=== PATIENT | female | born 1950 | race Hispanic/Latino ===

== ENCOUNTER 2017-05-12 05:33 | Emergency (ER) | payer MEDICARE ==
[2017-05-12 05:33] VITALS: BMI 18.8
[2017-05-12 05:52] VITALS: TEMP 97.8
[2017-05-12] MEDS ORDERED: Morphine 4 MG/ML VIAL IVP STA (06:02)
[2017-05-12] MEDS ORDERED: Morphine 4 MG/ML VIAL ONE (06:17)
[2017-05-12 06:29] LABS: BASO % 0.8 % (0.0-2.0); EOS # 0.1 K/uL (0.0-0.7); EOS % 1.9 % (0.0-4.0); HEMOGLOBIN 13.4 g/dL (12.0-16.0); LYMPH # 1.4 K/uL (1.0-4.3); LYMPH % 28.3 % (20.0-40.0); MEAN CELL VOLUME 98.8 fl (81.0-99.0); MEAN CORPUSCULAR HEMOGLOBIN 33.6 pg (27.0-31.0); MEAN CORPUSCULAR HGB CONC 33.9 g/dL (33.0-37.0); MEAN PLATELET VOLUME 7.7 fl (7.2-11.7); MONO # 0.6 K/uL (0.0-0.8); MONO % 12.4 % (0.0-10.0); NEUT # 2.7 K/uL (1.8-7.0); NEUT % 56.6 % (50.0-75.0); NRBC % 0.1 % (0.0-0.0); RBC 3.98 Mil/uL (3.80-5.20); RED CELL DISTRIBUTION WIDTH 13.5 % (11.5-14.5); WHITE BLOOD COUNT 4.8 K/uL (4.8-10.8)
[2017-05-12 06:36] LABS: BLOOD UREA NITROGEN 6 mg/dl (7-17); CALCIUM 8.9 mg/dL (8.4-10.2); GFR AFRICAN-AMERICAN > 60; GFR NON-AFRICAN AMERICAN > 60
--- NOTE | 2017-05-12 06:49 | ED PDOC ---
HPI: Chest Pain Time Seen by Provider: 05/12/17 05:49 Chief Complaint (Nursing): Chest Pain Chief Complaint (Provider): Chest Pain History Per: Patient History/Exam Limitations: no limitations Additional Complaint(s): 67 y/o female with past medical history of COPD and thyroid cancer presents to the ED for evaluation of chest pain. About a week ago she fell and hit her sternum against dresser and ever since pain has been worsening. Patient has difficulty breathing and cough. Denies any further medical complaints. Past Medical History Reviewed: Historical Data, Nursing Documentation, Vital Signs Vital Signs: Last Vital Signs Temp 97.8 F 05/12/17 05:50 Pulse 79 05/12/17 09:42 Resp 20 05/12/17 09:42 BP 118/80 05/12/17 09:42 Pulse Ox 96 05/12/17 09:42 - Medical History PMH: Arthritis (TENDERNITIS), COPD, Gastrointestinal Ulcer Denies: Chronic Kidney Disease - Surgical History Surgical History: Tonsillectomy - Family History Family History: States: Unknown Family Hx - Social History Current smoker - smoking cessation education provided: Yes (Heavy smoker >10 ciarettes daily) Alcohol: None Drugs: Denies - Home Medications Home Medications: Ambulatory Orders Medication Instructions Recorded traMADol [Ultram] 50 mg PO Q8 #10 tab 05/12/17 - Allergies Allergies/Adverse Reactions: Allergies Allergy/AdvReac Type Severity Reaction Status Date / Time acetaminophen Allergy RASH Verified 03/23/15 07:30 oxycodone Allergy RASH Verified 05/12/17 05:49 Penicillins Allergy ANAPHYLAXIS Verified 05/12/17 05:49 propoxyphene napsylate Allergy RASH Verified 05/12/17 05:49 [From Darvocet-N] ciprofloxacin AdvReac RASH Verified 05/12/17 05:49 ketorolac tromethamine AdvReac RASH Verified 05/12/17 05:49 [From Toradol] NSAIDS (Non-Steroidal AdvReac PAIN Verified 05/12/17 05:49 Anti-Inflamma Review of Systems ROS Statement: Except As Marked, All Systems Reviewed And Found Negative (As per HPI, otherwise negative) Cardiovascular: Positive for: Chest Pain Physical Exam - Reviewed Nursing Documentation Reviewed: Yes Vital Signs Reviewed: Yes - Physical Exam Appears: Positive for: Well, Non-toxic, No Acute Distress Head Exam: Positive for: ATRAUMATIC, NORMAL INSPECTION, NORMOCEPHALIC Skin: Positive for: Normal Color, Warm, Dry Eye Exam: Positive for: EOMI, Normal appearance, PERRL ENT: Positive for: Normal ENT Inspection Neck: Positive for: Normal, Painless ROM, Supple Cardiovascular/Chest: Positive for: Regular Rate, Rhythm, Other (Palpation to mid sternum, no crepatous or step off noted). Negative for: Murmur Respiratory: Positive for: Normal Breath Sounds. Negative for: Accessory Muscle Use, Respiratory Distress Gastrointestinal/Abdominal: Positive for: Normal Exam, Bowel Sounds, Soft. Negative for: Tenderness Back: Positive for: Normal Inspection Extremity: Positive for: Normal ROM. 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 Jerry pending xray and re-eval. Scribe Attestation: Documented by Dangelo rBooks acting as a scribe for Dennis Liao MD. Scribe Attestation: All medical record entries made by the Scribe were at my direction and personally dictated by me. I have reviewed the chart and agree that the record accurately reflects my personal performance of the history, physical exam, medical decision making, and the department course for this patient. I have also personally directed, reviewed, and agree with the discharge instructions and disposition. Disposition - Clinical Impression Clinical Impression: Contusion of chest wall - Patient ED Disposition Is Patient to be Admitted: Transfer of Care - Disposition Referrals: [facility] [Outside] Disposition: Transfer of Care Disposition Time: 07:00 Condition: FAIR Prescriptions: traMADol [Ultram] 50 mg PO Q8 #10 tab Instructions: Contusion (DC) Forms: [facility] (Mozambican) Patient Signed Over To: Kenny Jerry Handoff Comments: pending x-ray and re-eval
[2017-05-12 06:57] LABS: INR 0.9 (0.9-1.2); PARTIAL THROMBOPLASTIN TIME 31.7 Seconds (25.6-37.1); PROTHROMBIN TIME 9.8 Seconds (9.8-13.1)
--- NOTE | 2017-05-12 08:08 | RAD ---
HISTORY: chest pain, sternal pain after injury COMPARISON: No prior FINDINGS: BONES: Normal. No fracture. JOINTS: Normal. No osteoarthritis. SOFT TISSUE: Normal. OTHER FINDINGS: None . IMPRESSION: Normal Bone Xray.
--- NOTE | 2017-05-12 08:45 | RAD ---
HISTORY: chest pain COMPARISON: No prior. TECHNIQUE: Chest PA and lateral FINDINGS: LUNGS: No active pulmonary disease. 3.5 centimeter possible mass along the posterior inferior lung field (question right versus left) noted on lateral view only. PLEURA: No significant pleural effusion identified. No pneumothorax apparent. CARDIOVASCULAR: Normal. OSSEOUS STRUCTURES: No significant abnormalities. VISUALIZED UPPER ABDOMEN: Normal. OTHER FINDINGS: None. IMPRESSION: 3.5 centimeter possible mass along the posterior inferior lung field (question right versus left) noted on lateral view only.
--- NOTE | 2017-05-12 09:16 | ED PDOC ---
- Laboratory Results Result Diagrams: 05/12/17 06:18 05/12/17 06:18 - ECG O2 Sat by Pulse Oximetry: 97 Medical Decision Making Medical Decision Making: No fx seen on xray sternum or CXR. ? mass lower post lung feild on lateral view. Appears to have similar appearance 03/2016 CXR lat view. Will have pt follow up with PMD for eval of possible mass. Disposition - Clinical Impression Clinical Impression: Contusion of chest wall - POA Present On Arrival: None - Disposition Referrals: [facility] [Outside] Disposition: Routine/Home Disposition Time: 09:16 Condition: FAIR Prescriptions: traMADol [Ultram] 50 mg PO Q8 #10 tab Instructions: Contusion (DC) Forms: [facility] (Kyrgyz)
[2017-05-12 09:45] VITALS: BP 118/80; PULSE 79; RESP 20
[2017-05-13 01:43] VITALS: O2SAT 94
--- NOTE | 2017-05-13 10:34 | CARD ---
APPROVED REPORT EKG Measurement Heart [id number] <Conclusion> Normal sinus rhythm Normal ECG
== END 2017-05-12 09:45 | disposition home or self-care (01) ==
LOC: H.ER 05:33
DX: S20.219A Contusion of unspecified front wall of thorax, initial encounter (principal); W22.8XXA Striking against or struck by other objects, initial encounter; Y92.89 Other specified places as the place of occurrence of the external cause; J44.9 Chronic obstructive pulmonary disease, unspecified; Z85.850 Personal history of malignant neoplasm of thyroid; Z88.0 Allergy status to penicillin; Z88.5 Allergy status to narcotic agent; F17.200 Nicotine dependence, unspecified, uncomplicated
CPT/HCPCS: 71046; 71120; 80048; 84484; 85025; 85610; 85730; 93005; 96374; 99283; J2270

== ENCOUNTER 2017-12-07 17:57 | Emergency (ER) | payer MEDICARE ==
[2017-12-07 17:57] VITALS: BMI 18.8
--- NOTE | 2017-12-07 18:50 | ED PDOC ---
HPI: SOB/CHF/COPD Time Seen by Provider: 12/07/17 18:08 Chief Complaint (Nursing): Shortness Of Breath Chief Complaint (Provider): Shortness Of Breath History Per: Patient History/Exam Limitations: no limitations Onset/Duration Of Symptoms: Hrs, Sudden Onset Current Symptoms Are (Timing): Still Present Quality: Tightness Additional Complaint(s): Jerilyn Willoughby is a 67 year old female with a past medical history of arthritis and COPD who is presenting to the ED for evaluation of sudden onset shortness of breath associated with chest tightness, onset just prior to arrival. Patient states that she initially treated herself with her inhaler but she didnt not have any relief in symptoms so she came to the ED for further evaluation. She admits to recently having some chills, a subjective fever, and increased cough with sputum production. Patient reports that the last two weeks, she has decreased her levothyroxine because her youth minister saw that her thyroid function seemed to be becoming elevated. She also reports palpitations, lightheadedness, and mild anxiety. PMD: Shefali Tan [employer]isher [employer]: Dr. Alfred Against Medical Advice - AMA Patient Left Against Medical Advice: The patient declines admission to the hospital and wishes to leave the Emergency Department. This action is against my medical advice. This decision was made with informed refusal. The patient was told that admission to the hospital is necessary. Explanation of the reasons why were discussed. The risks of leaving were explained to the patient and include, but are not limited to, worsening of known or currently unknown conditions, permanent disability and from undiagnosed or untreated conditions. The patient has the capacity to make this informed decision and understands my explanation of the current medical problem and risks of leaving. The patient voluntarily accepts these risks and signed an AMA form documenting our conversation. The patient was given the opportunity to ask questions and reconsider. The patient was encouraged to return to the Emergency Department at any time for further care. Past Medical History Reviewed: Historical Data, Nursing Documentation, Vital Signs Vital Signs: Last Vital Signs Temp 98.4 F 12/07/17 18:01 Pulse 110 H 12/07/17 18:01 Resp 18 12/07/17 18:01 BP 153/97 H 12/07/17 18:01 Pulse Ox 98 12/07/17 18:01 - Medical History PMH: Arthritis (TENDERNITIS), COPD, Gastrointestinal Ulcer Denies: Chronic Kidney Disease - Surgical History Surgical History: Tonsillectomy - Family History Family History: States: Unknown Family Hx - Social History Current smoker - smoking cessation education provided: No Alcohol: None Drugs: Denies - Home Medications Home Medications: Ambulatory Orders Medication Instructions Recorded RX: traMADol [Ultram] 50 mg PO Q8 #10 tab 05/12/17 - Allergies Allergies/Adverse Reactions: Allergies Allergy/AdvReac Type Severity Reaction Status Date / Time acetaminophen Allergy RASH Verified 12/07/17 18:01 oxycodone Allergy RASH Verified 12/07/17 18:01 Penicillins Allergy ANAPHYLAXIS Verified 12/07/17 18:01 propoxyphene napsylate Allergy RASH Verified 12/07/17 18:01 [From Darvocet-N] ciprofloxacin AdvReac RASH Verified 12/07/17 18:01 ketorolac tromethamine AdvReac RASH Verified 12/07/17 18:01 [From Toradol] NSAIDS (Non-Steroidal AdvReac PAIN Verified 12/07/17 18:01 Anti-Inflamma Review of Systems ROS Statement: Except As Marked, All Systems Reviewed And Found Negative Constitutional: Positive for: Fever Cardiovascular: Positive for: Chest Pain (tightness ) Respiratory: Positive for: Cough, Shortness of Breath, Sputum Neurological: Positive for: Other (lightheadedness) Physical Exam - Reviewed Nursing Documentation Reviewed: Yes Vital Signs Reviewed: Yes - Physical Exam Appears: Positive for: No Acute Distress (mildly anxious) Head Exam: Positive for: ATRAUMATIC, NORMOCEPHALIC Skin: Positive for: Warm, Dry Eye Exam: Positive for: EOMI, PERRL ENT: Positive for: Pharynx Is (clear), Other (dry mucous membranes) Neck: Positive for: Painless ROM, Supple Cardiovascular/Chest: Positive for: Tachycardia (with regular rhythm) Respiratory: Positive for: Other (poor air movement). Negative for: Rales, Rhonchi, Wheezing Gastrointestinal/Abdominal: Positive for: Soft. Negative for: Tenderness Back: Positive for: Normal Inspection. Negative for: Decreased ROM Extremity: Positive for: Normal ROM, Other (RIGHT hand splint). Negative for: Deformity Lymphatic: Negative for: Adenopathy Neurologic/Psych: Positive for: Alert. Negative for: Motor/Sensory Deficits - Laboratory Results Result Diagrams: 12/07/17 18:56 12/07/17 18:56 - ECG ECG Rhythm: Positive for: Normal QRS, Normal ST Segment, Sinus Tachycardia Rate: 104 O2 Sat by Pulse Oximetry: 98 (RA) Pulse Ox Interpretation: Normal Medical Decision Making Medical Decision Making: Time: 18:19 Impression: Tachycardia with shortness of breath Differentials (including but not limited to): hyperthyroidism, thyroid storm, ACS, PE, pneumonia, CHF Plan: --Blood Type and Screen --ABG Shock Panel --EKG --BNP --CMP --Free T4 --Magnesium --Phosphorous --T3 --TSH --Troponin --ED Urine Dipsitck --CBC --D Dimer --Coags --Chest X-Ray --Blood Culture Initial labs with no emergently significant abnormalities. Pt's HR improved without intervention in ER. However advised that due to cardiac and pulmonary risk factors, pt should stay for observation. However pt declines this. Understands risk of or severe disability and wished to go home anyway. AMA signed. Scribe Attestation: Documented by Amparo Melgar, acting as a scribe for Jacy Joseph MD. Provider Scribe Attestation: All medical record entries made by the Scribe were at my direction and personally dictated by me. I have reviewed the chart and agree that the record accurately reflects my personal performance of the history, physical exam, medical decision making, and the department course for this patient. I have also personally directed, reviewed, and agree with the discharge instructions and disposition. Disposition - Clinical Impression Clinical Impression: Palpitations, Tachycardia - Disposition Disposition: Against Medical Advice Disposition Time: 21:30 Condition: UNKNOWN Additional Instructions: RETURN TO ER IMMEDIATELY FOR ADMISSION AND FURTHER EVALUATION OF SHORTNESS OF BREATH. Instructions: Leaving Against Medical Advice
[2017-12-07 19:06] LABS: BASO % 0.7 % (0.0-2.0); EOS # 0.1 K/uL (0.0-0.7); EOS % 1.9 % (0.0-4.0); HEMOGLOBIN 13.8 g/dL (12.0-16.0); LYMPH # 1.2 K/uL (1.0-4.3); MEAN CELL VOLUME 97.8 fl (81.0-99.0); MEAN CORPUSCULAR HEMOGLOBIN 33.8 pg (27.0-31.0); MEAN CORPUSCULAR HGB CONC 34.5 g/dL (33.0-37.0); MEAN PLATELET VOLUME 8.1 fl (7.2-11.7); MONO # 0.4 K/uL (0.0-0.8); MONO % 9.2 % (0.0-10.0); NEUT # 2.8 K/uL (1.8-7.0); NEUT % 61.2 % (50.0-75.0); RBC 4.07 Mil/uL (3.80-5.20); RED CELL DISTRIBUTION WIDTH 13.5 % (11.5-14.5); WHITE BLOOD COUNT 4.6 K/uL (4.8-10.8)
[2017-12-07 19:09] LABS: ABG ALLEN TEST YES; ARTERIAL BLOOD GAS HCO3 26.7 mmol/L (21-28); ARTERIAL BLOOD GAS O2 SAT 98.7 % (95-98); ARTERIAL BLOOD GAS PCO2 42 mm/Hg (35-45); ARTERIAL BLOOD GAS PH 7.42 (7.35-7.45); ARTERIAL BLOOD GAS PO2 75 mm/Hg (80-100); ARTERIAL BLOOD GAS TCO2 28.5 mmol/L (22-28)
[2017-12-07 19:16] LABS: ALB/GLOB RATIO 1.4 (1.0-2.1); ALBUMIN 3.9 g/dL (3.5-5.0); BLOOD UREA NITROGEN 11 mg/dl (7-17); GFR NON-AFRICAN AMERICAN > 60
[2017-12-07 19:26] LABS: ALT/SGPT 19 U/L (9-52); AST/SGOT 38 U/L (14-36)
[2017-12-07 19:28] LABS: B-TYPE NATRIURETIC PEPTIDE 318 pg/ml (0-900)
[2017-12-07 19:46] LABS: T3 0.884 nmol/L (1.49-2.60)
[2017-12-07 20:52] LABS: INR 0.9
[2017-12-07 20:53] VITALS: RESP 18; TEMP 98
[2017-12-07 20:53] LABS: PARTIAL THROMBOPLASTIN TIME 32.1 Seconds (25.6-37.1)
[2017-12-07 21:04] LABS: D DIMER < 200 ng/mlDDU (0-230); PROTHROMBIN TIME 9.9 Seconds (9.8-13.1)
[2017-12-07] MEDS ORDERED: Albuterol-Ipratrop 3 mg / 0.5 (3 ml) UD ONE (21:32)
[2017-12-07] MEDS ORDERED: Albuterol-Ipratrop 3 mg / 0.5 (3 ml) UD INH STA (21:35)
[2017-12-07 22:42] VITALS: BP 108/60
--- NOTE | 2017-12-08 10:45 | CARD ---
APPROVED REPORT Date of service: 12/07/2017 EKG Measurement Heart [id number] <Conclusion> Sinus tachycardia Cannot rule out Anterior infarct, age undetermined Abnormal ECG
--- NOTE | 2017-12-08 11:05 | RAD ---
Date of service: 12/07/2017 HISTORY: sob tachycardia COMPARISON: 05/12/2017 FINDINGS: LUNGS: Lungs are mildly hyperinflated. Mild interstitial changes are noted. There family a jay of the left hemidiaphragm, unchanged from prior study. No hilar enlargement is noted. PLEURA: No significant pleural effusion identified, no pneumothorax apparent. CARDIOVASCULAR: Normal. OSSEOUS STRUCTURES: No significant abnormalities. VISUALIZED UPPER ABDOMEN: Normal. OTHER FINDINGS: None. IMPRESSION: No active disease.
[2017-12-08 16:43] VITALS: PULSE 104; O2SAT 98
== END 2017-12-07 21:40 | disposition left against medical advice (07) ==
LOC: H.ER 17:57
DX: R00.0 Tachycardia, unspecified (principal); R00.2 Palpitations; J44.9 Chronic obstructive pulmonary disease, unspecified; R07.89 Other chest pain; Z88.1 Allergy status to other antibiotic agents; Z88.0 Allergy status to penicillin; M19.90 Unspecified osteoarthritis, unspecified site
CPT/HCPCS: 36600; 71045; 80053; 82803; 83735; 83880; 84100; 84439; 84443; 84480; 84484; 85025; 85378; 85610; 85730; 87040; 93005; 94640; 96374; 99285; J2405

== ENCOUNTER 2017-12-28 18:19 | Emergency (ER) | payer MEDICARE ==
[2017-12-28 18:20] VITALS: BMI 18.8
[2017-12-28] MEDS ORDERED: Sodium Chloride 0.9% 500 ML IV STA (18:50)
--- NOTE | 2017-12-28 18:53 | ED PDOC ---
Lower Extremity Pain/Injury Time Seen by Provider: 12/28/17 18:32 Chief Complaint (Nursing): Lower Extremity Problem/Injury Chief Complaint (Provider): Grain hematoma History Per: Patient History/Exam Limitations: no limitations Onset/Duration Of Symptoms: Days (yesterday) Current Symptoms Are (Timing): Still Present Additional Complaint(s): Pt. with right groin pain worsening since yesterday with increased swelling and black and blue in right groin. Denies any numbness, tingles, weakness. Able to walk and move leg around. Had a cath in her right groin yesterday by Dr. Bang. Took 2 plavix prior to that. Since then on aspirin. No other blood thinners. No chest pain, dyspnea. Had cath for evaluation of her heart. States it was normal. PCP: Dr. Aguilar. Past Medical History Reviewed: Historical Data, Nursing Documentation, Vital Signs Vital Signs: Last Vital Signs Temp 97.7 F 12/28/17 18:21 Pulse 103 H 12/28/17 18:21 Resp 18 12/28/17 18:21 BP 131/72 12/28/17 18:21 Pulse Ox 100 12/28/17 18:21 - Medical History PMH: Arthritis (TENDERNITIS), Asthma, COPD, Gastrointestinal Ulcer Denies: Chronic Kidney Disease - Surgical History Surgical History: Tonsillectomy Denies: Pacemaker - Family History Family History: States: Unknown Family Hx - Home Medications Home Medications: Ambulatory Orders Medication Instructions Recorded Albuterol HFA [Ventolin HFA 90 0.09 mg IH PRN PRN 12/26/17 mcg/actuation (8 g)] Aspirin [Ecotrin] 81 mg PO DAILY 12/26/17 Levothyroxine [Synthroid] 75 mcg PO DAILY 12/26/17 - Allergies Allergies/Adverse Reactions: Allergies Allergy/AdvReac Type Severity Reaction Status Date / Time acetaminophen Allergy RASH Verified 12/07/17 18:01 Penicillins Allergy ANAPHYLAXIS Verified 12/07/17 18:01 propoxyphene napsylate Allergy RASH Verified 12/07/17 18:01 [From Darvocet-N] ciprofloxacin AdvReac RASH Verified 12/07/17 18:01 ketorolac tromethamine AdvReac RASH Verified 12/07/17 18:01 [From Toradol] NSAIDS (Non-Steroidal AdvReac PAIN Verified 12/07/17 18:01 Anti-Inflamma Review of Systems ROS Statement: Except As Marked, All Systems Reviewed And Found Negative Musculoskeletal: Positive for: Other (groin) Neurological: Negative for: Weakness Physical Exam - Reviewed Nursing Documentation Reviewed: Yes Vital Signs Reviewed: Yes - Physical Exam Appears: Positive for: Uncomfortable Head Exam: Positive for: ATRAUMATIC, NORMAL INSPECTION, NORMOCEPHALIC Eye Exam: Positive for: EOMI, Normal appearance, PERRL ENT: Positive for: Normal ENT Inspection Neck: Positive for: Normal, Painless ROM Cardiovascular/Chest: Positive for: Regular Rate, Rhythm Respiratory: Positive for: CNT, Normal Breath Sounds Pulses-Dorsalis Pedis (L): 2+ Pulses-Dorsalis Pedis (R): 2+ Pulses-Post. Tibialis (L): 2+ Pulses-Post. Tibialis (R): 2+ Gastrointestinal/Abdominal: Positive for: Tenderness (R groing with large hematoma and tender; echymosis in area and upper right leg.) Back: Positive for: Normal Inspection. Negative for: L CVA Tenderness, R CVA Tenderness Extremity: Positive for: Normal ROM. Negative for: Tenderness (of lower extremity knee down.) Neurologic/Psych: Positive for: Alert, Oriented - Laboratory Results Result Diagrams: 12/28/17 19:08 12/28/17 19:08 Interpretation Of Abn Labs: no acute - ECG O2 Sat by Pulse Oximetry: 100 Pulse Ox Interpretation: Normal - Progress ED Course And Treament: 2304: Spoke with surgery resident. Will see pt. in the ER. Dr. Bang paged with no response. 1110: Pt. will need further observation in hospital. No vascular regional sales coordinator at [place]. No vascular surgeon available at [facility]. Dr. Elizalde out of town. Pt. wants to go to [facility]. Spoke with Dr. Brooks fellow at [facility]. Will see pt. in the ER with Dr. Bang. Spoke with Dr. Garner in the ER. Aware of case and will accept for transfer to ER. - Critical Care Total Time (In Min): 30 Documented Critical Care: Time excludes all time spent performint seperately billable procedures Disposition - Clinical Impression Clinical Impression: Hematoma - Patient ED Disposition Is Patient to be Admitted: Yes Counseled Patient/Family Regarding: Studies Performed, Diagnosis - Disposition Disposition: Other Institution Disposition Time: 00:05 Condition: FAIR
[2017-12-28 19:19] LABS: BASO % 0.9 % (0.0-2.0); EOS # 0.1 K/uL (0.0-0.7); EOS % 1.7 % (0.0-4.0); HEMOGLOBIN 12.7 g/dL (12.0-16.0); LYMPH % 18.1 % (20.0-40.0); MEAN CELL VOLUME 98.1 fl (81.0-99.0); MEAN CORPUSCULAR HEMOGLOBIN 33.6 pg (27.0-31.0); MEAN CORPUSCULAR HGB CONC 34.3 g/dL (33.0-37.0); MEAN PLATELET VOLUME 8.4 fl (7.2-11.7); MONO # 0.5 K/uL (0.0-0.8); NEUT # 3.7 K/uL (1.8-7.0); NEUT % 70.3 % (50.0-75.0); RBC 3.77 Mil/uL (3.80-5.20); RED CELL DISTRIBUTION WIDTH 13.5 % (11.5-14.5); WHITE BLOOD COUNT 5.2 K/uL (4.8-10.8)
[2017-12-28 19:30] LABS: PROTHROMBIN TIME 10.9 Seconds (9.8-13.1)
[2017-12-28] MEDS ORDERED: Iohexol 300 100 ML IJ ONE (19:31)
[2017-12-28] MEDS ORDERED: Sodium Chloride 0.9% 50 ML IV ONE (19:31)
[2017-12-28 19:33] LABS: PARTIAL THROMBOPLASTIN TIME 29.7 Seconds (25.6-37.1)
[2017-12-28 19:35] LABS: ALB/GLOB RATIO 1.5 (1.0-2.1); ALT/SGPT 17 U/L (9-52); AST/SGOT 27 U/L (14-36); BLOOD UREA NITROGEN 8 mg/dl (7-17); CALCIUM 9.2 mg/dL (8.4-10.2); GFR NON-AFRICAN AMERICAN > 60
[2017-12-29 01:43] VITALS: BP 139/92; PULSE 90; RESP 20; TEMP 97.7; O2SAT 95
--- NOTE | 2017-12-29 09:14 | CT ---
Date of service: 12/28/2017 PROCEDURE: CT Abdomen and Pelvis with contrast HISTORY: hematoma post cath yesterday. COMPARISON: CT scan of the abdomen pelvis dated 07/07/2013. TECHNIQUE: Contrast dose: 80 mL Omnipaque 300 Radiation dose: Total exam DLP = 278.15 mGy-cm. This CT exam was performed using one or more of the following dose reduction techniques: Automated exposure control, adjustment of the mA and/or kV according to patient size, and/or use of iterative reconstruction technique. FINDINGS: LOWER THORAX: Unremarkable. LIVER: Unremarkable. No gross lesion or ductal dilatation. GALLBLADDER AND BILE DUCTS: Unremarkable. PANCREAS: Unremarkable. No gross lesion or ductal dilatation. SPLEEN: Unremarkable. ADRENALS: Unremarkable. No mass. KIDNEYS AND URETERS: Unremarkable. No hydronephrosis. No solid mass. VASCULATURE: No aortic aneurysm. Scattered aortic atherosclerotic calcifications. Right common femoral artery serpiginous pseudoaneurysm measuring approximately 1.9 x 1.0 cm. BOWEL: Colonic diverticulosis. No obstruction. No gross mural thickening. APPENDIX: No findings to suggest acute appendicitis. PERITONEUM: Unremarkable. No free fluid. No free air. LYMPH NODES: Unremarkable. No enlarged lymph nodes. BLADDER: Unremarkable. REPRODUCTIVE: Unremarkable. BONES: No acute fracture. Spinal degenerative changes. OTHER FINDINGS: Right inguinal region bilobed 6.8 x 5.6 cm hematoma. IMPRESSION: Right common femoral artery serpiginous pseudoaneurysm measuring approximately 1.9 x 1.0 cm with thin neck and adjacent 6.8 x 5.6 cm bilobed hematoma. Additional findings as above. The patient was transferred to [facility] for further care.
== END 2017-12-29 01:44 | disposition short-term general hospital (02) ==
LOC: H.ER 18:19
DX: L76.22 Postprocedural hemorrhage of skin and subcutaneous tissue following other procedure (principal); Z79.01 Long term (current) use of anticoagulants; Z79.82 Long term (current) use of aspirin; Z88.1 Allergy status to other antibiotic agents; Z88.0 Allergy status to penicillin; J44.9 Chronic obstructive pulmonary disease, unspecified
CPT/HCPCS: 74177; 80053; 84484; 85025; 85610; 85730; 86850; 86900; 96361; 96374; 99283; J2270; J7040; Q9967

== ENCOUNTER 2018-04-21 15:35 | Emergency (ER) | payer MEDICARE ==
[2018-04-21 15:35] VITALS: BMI 18.8
[2018-04-21 15:43] VITALS: RESP 18
--- NOTE | 2018-04-21 16:07 | ED PDOC ---
HPI: Chest Pain Time Seen by Provider: 04/21/18 15:50 Chief Complaint (Nursing): Chest Pain Chief Complaint (Provider): Chest Pain History Per: Patient History/Exam Limitations: no limitations Current Symptoms Are (Timing): Still Present Quality: Tightness Additional Complaint(s): Jerilyn Willoughby is a 68 year old female with a past medical history of HTN, hematoma, CO and thyroid cancer, who presents to the emergency department complaining of chest pain that feels like tightness. Patient further states that she had a argument with her last night and woke up angry and has been feeling overwhelmed lately. Patient denies having any history of seizures. Rhea [place] further states that in December of 2017 she had a catheter procedure done on her. Patient denies having any other complaints. PMD: Lauren Rodriguez Past Medical History Reviewed: Historical Data, Nursing Documentation, Vital Signs Vital Signs: Last Vital Signs Temp 98.1 F 04/21/18 15:41 Pulse 89 04/21/18 15:41 Resp 18 04/21/18 15:41 BP 162/70 H 04/21/18 15:41 Pulse Ox 97 04/21/18 15:41 - Medical History PMH: Arthritis (TENDERNITIS), Asthma, COPD, Gastrointestinal Ulcer, Hypothyroidism (hx of thyroidectomy) Denies: Chronic Kidney Disease Other PMH: CO; hematoma; thyroid cancer - Surgical History Surgical History: Tonsillectomy Denies: Pacemaker - Family History Family History: States: Unknown Family Hx - Immunization History Hx Tetanus Toxoid Vaccination: No Hx Influenza Vaccination: No Hx Pneumococcal Vaccination: No - Home Medications Home Medications: Ambulatory Orders Medication Instructions Recorded Albuterol HFA [Ventolin HFA 90 0.09 mg IH PRN PRN 12/26/17 mcg/actuation (8 g)] Aspirin [Ecotrin] 81 mg PO DAILY 12/26/17 Levothyroxine [Synthroid] 75 mcg PO DAILY 12/26/17 - Allergies Allergies/Adverse Reactions: Allergies Allergy/AdvReac Type Severity Reaction Status Date / Time acetaminophen Allergy RASH Verified 04/21/18 15:48 Penicillins Allergy ANAPHYLAXIS Verified 04/21/18 15:48 propoxyphene napsylate Allergy RASH Verified 04/21/18 15:48 [From Aliyah-N] ciprofloxacin AdvReac RASH Verified 04/21/18 15:48 ketorolac tromethamine AdvReac RASH Verified 04/21/18 15:48 [From Toradol] NSAIDS (Non-Steroidal AdvReac PAIN Verified 04/21/18 15:48 Anti-Inflamma Review of Systems ROS Statement: Except As Marked, All Systems Reviewed And Found Negative Cardiovascular: Positive for: Chest Pain Respiratory: Negative for: Shortness of Breath Physical Exam - Reviewed Nursing Documentation Reviewed: Yes Vital Signs Reviewed: Yes - Physical Exam Appears: Positive for: Non-toxic, No Acute Distress (mildly anxious) Head Exam: Positive for: ATRAUMATIC, NORMOCEPHALIC Skin: Positive for: Normal Color, Warm, Dry Eye Exam: Positive for: Normal appearance, EOMI, PERRL Neck: Positive for: Normal, Painless ROM, Supple Cardiovascular/Chest: Positive for: Regular Rate, Rhythm. Negative for: Murmur Respiratory: Positive for: Normal Breath Sounds. Negative for: Respiratory Distress Pulses-Radial (L): 2+ Pulses-Radial (R): 2+ Gastrointestinal/Abdominal: Positive for: Soft. Negative for: Tenderness Extremity: Positive for: Normal ROM, Pedal Edema. Negative for: Deformity Neurologic/Psych: Positive for: Alert, Oriented. Negative for: Motor/Sensory Deficits - Laboratory Results Result Diagrams: 04/21/18 16:47 04/21/18 16:47 - ECG O2 Sat by Pulse Oximetry: 97 (RA) Pulse Ox Interpretation: Normal Medical Decision Making Medical Decision Making: Time: 1543 A/P: work up to rule out cardiac etiology based on chest pain. Patient is high risk and will discuss case with Dr. Aguilar. --EKG --BMP --BNP --Troponin I --CBC with differential --Chest xray 2 views Chest xray findings: FINDINGS: LUNGS: No active pulmonary disease. PLEURA: No significant pleural effusion identified. No pneumothorax apparent. CARDIOVASCULAR: No aortic atherosclerotic calcification present. Normal cardiac size. No pulmonary vascular congestion. OSSEOUS STRUCTURES: No significant abnormalities. VISUALIZED UPPER ABDOMEN: Normal. OTHER FINDINGS: None. IMPRESSION: No active disease. Time: 1809 --Patient's labs are normal and EKG shows NSR --Patient states that she has not had any chest discomfort since the morning. 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 --Patient is safe for discharge home. --Patient instructed to follow up with Dr. Aguilar tomorrow or Sunday. Return parameters discussed. ---- Scribe Attestation: Documented by Sergei Barron, acting as a scribe for Hermelinda Irvin MD. Provider Scribe Attestation: All medical record entries made by the Scribe were at my direction and personally dictated by me. I have reviewed the chart and agree that the record accurately reflects my personal performance of the history, physical exam, medical decision making, and the department course for this patient. I have also personally directed, reviewed, and agree with the discharge instructions and disposition. Disposition - Clinical Impression Clinical Impression: Atypical chest pain - Disposition Referrals: Klaus Aguilar MD [Staff Provider] - Disposition: Routine/Home Disposition Time: 18:10 Condition: IMPROVED Additional Instructions: Follow up with primary medical doctor and Dr. Ric Aguilar. Continue to take all home medications as prescribed. Return to the emergency department if symptoms worsen or if new symptoms develop. Instructions: Chest Pain, Angina (DC) Forms: [employer] (Upper Sorbian) Print Language: KENYAN
[2018-04-21 16:50] LABS: BASO # 0.1 K/uL (0.0-0.2); BASO % 1.1 % (0.0-2.0); EOS % 0.6 % (0.0-4.0); HEMOGLOBIN 14.2 g/dL (12.0-16.0); LYMPH # 1.1 K/uL (1.0-4.3); LYMPH % 20.1 % (20.0-40.0); MEAN CORPUSCULAR HEMOGLOBIN 34.6 pg (27.0-31.0); MEAN CORPUSCULAR HGB CONC 35.1 g/dL (33.0-37.0); MEAN PLATELET VOLUME 7.8 fl (7.2-11.7); MONO # 0.6 K/uL (0.0-0.8); MONO % 10.6 % (0.0-10.0); NEUT # 3.6 K/uL (1.8-7.0); NEUT % 67.6 % (50.0-75.0); NRBC % 0.1 % (0.0-0.0); RBC 4.12 Mil/uL (3.80-5.20); RED CELL DISTRIBUTION WIDTH 12.9 % (11.5-14.5); WHITE BLOOD COUNT 5.3 K/uL (4.8-10.8)
[2018-04-21 16:52] LABS: MEAN CELL VOLUME 98.4 fl (81.0-99.0)
[2018-04-21 17:04] LABS: BLOOD UREA NITROGEN 9 mg/dl (7-17); CALCIUM 9.6 mg/dL (8.4-10.2); GFR NON-AFRICAN AMERICAN > 60
--- NOTE | 2018-04-21 17:10 | RAD ---
Date of service: 04/21/2018 HISTORY: cough COMPARISON: No prior. TECHNIQUE: Chest PA and lateral FINDINGS: LUNGS: No active pulmonary disease. PLEURA: No significant pleural effusion identified. No pneumothorax apparent. CARDIOVASCULAR: No aortic atherosclerotic calcification present. Normal cardiac size. No pulmonary vascular congestion. OSSEOUS STRUCTURES: No significant abnormalities. VISUALIZED UPPER ABDOMEN: Normal. OTHER FINDINGS: None. IMPRESSION: No active disease.
[2018-04-21 17:16] LABS: B-TYPE NATRIURETIC PEPTIDE 149 pg/ml (0-900)
[2018-04-21 19:26] VITALS: BP 139/89; PULSE 88; TEMP 98.3; O2SAT 98
--- NOTE | 2018-04-22 16:14 | CARD ---
APPROVED REPORT Date of service: 04/21/2018 EKG Measurement Heart [id number] <Conclusion> Normal sinus rhythm Nonspecific ST abnormality Abnormal ECG
== END 2018-04-21 16:35 | disposition home or self-care (01) ==
LOC: H.ER 15:35
DX: R07.89 Other chest pain (principal); E03.9 Hypothyroidism, unspecified; I10 Essential (primary) hypertension; Z85.850 Personal history of malignant neoplasm of thyroid; Z88.0 Allergy status to penicillin; Z88.1 Allergy status to other antibiotic agents